=== PATIENT | male | born 1965 | race Caucasian/White ===

== ENCOUNTER 2016-08-30 12:15 | Observation (INO) | payer OTHER ==
[~2016-08-30] VITALS: Ht 162.6 cm; Wt 94.0 kg
[2016-08-30 12:21] VITALS: Ht 162.6 cm; Wt 94.0 kg
[2016-08-30] MEDS ORDERED: AMLO-218 PO (15:29)
[2016-08-30] MEDS ORDERED: FOLI1CAP PO (15:30)
[2016-08-30] MEDS ORDERED: CLON-379 PO (15:30)
[2016-08-30] MEDS ORDERED: CALC667C PO (15:31)
[2016-08-30] MEDS ORDERED: ASPI-664 PO (15:31)
[2016-08-30] MEDS ORDERED: NOVO3I SC (15:32)
[2016-08-30 15:58] VITALS: TEMP 98.1
[2016-08-30 16:09] LABS: ADD SCAN DIFF NO
[2016-08-30 16:10] LABS: BASOPHILS % 0.4 % (0.0-2.0); EOSINOPHILS # 0.2 10^3/ul (0.0-0.5); EOSINOPHILS % 4.6 % (0.0-7.0); HEMATOCRIT 40.5 % (42.0-52.0); HEMOGLOBIN 12.9 g/dl (14.0-18.0); LYMPHOCYTES # 1.1 10^3/ul (0.8-2.9); LYMPHOCYTES % 23.3 % (15.0-51.0); MEAN CORPUSCULAR HEMOGLOBIN 31.2 pg (29.0-33.0); MEAN CORPUSCULAR HGB CONC 31.9 g/dl (32.0-37.0); MEAN CORPUSCULAR VOLUME 98.1 fl (82.0-101.0); MEAN PLATELET VOLUME 10.5 fl (7.4-10.4); MONOCYTE # 0.3 10^3/ul (0.3-0.9); MONOCYTES % 5.9 % (0.0-11.0); NEUTROPHIL # 3.1 10^3/ul (1.6-7.5); NEUTROPHILS % 65.6 % (39.0-77.0); PLATELET COUNT 158 10^3/UL (140-415); RED BLOOD COUNT 4.13 10^6/ul (4.70-6.10); RED CELL DISTRIBUTION WIDTH 17.2 % (11.5-14.5); WHITE BLOOD COUNT 4.8 10^3/ul (4.8-10.8)
[2016-08-30 16:20] LABS: INR 0.85; PROTIME 11.6 Sec (12.2-14.2); PT RATIO 0.9
[2016-08-30 16:21] LABS: PARTIAL THROMBOPLASTIN TIME 26.9 Sec (25.0-35.0)
[2016-08-30 16:22] LABS: CREATININE 8.03 mg/dl (0.61-1.24)
[2016-08-30 16:26] LABS: POTASSIUM 7.5 mmol/L (3.5-5.1)
[2016-08-30] MEDS ORDERED: CA GLUCONATE (GM) 10% 10ML INJ IV STA ×2 (16:26→18:22)
[2016-08-30] MEDS ORDERED: NA BICARBONATE 8.4% 50 ML SYG IV STA ×2 (16:26→18:22)
[2016-08-30] MEDS ORDERED: INSULIN REGULAR, HUMAN 100 UNIT/1 ML 3ML VIAL IV STA ×2 (16:26→18:22)
[2016-08-30] MEDS ORDERED: DEXTROSE 50% 50 ML SYRINGE IV STA ×2 (16:26→18:22)
[2016-08-30] MEDS: NA POLYST SULFON 15 GM/60 ML BTL PO STA ×2 (17:22→17:31)
[2016-08-30 18:29] VITALS: RESP 13
[2016-08-30] MEDS ORDERED: ONDANSETRON 4 MG INJ IV PRN (18:30)
[2016-08-30] MEDS ORDERED: ACETAMINOPHEN 325 MG TAB PO PRN (18:30)
--- NOTE | 2016-08-30 18:30 | ERA ---
ER Documentation Chief Complaint Date/Time DATE: 08/30/16 TIME: 18:26 Chief Complaint needs cath for dialisis , clogged HPI This a 51-year-old male who was sent for clotted dialysis catheter. The patient says on Thursday he had dialysis that was somewhat shorter than usual due to a starting to malfunction right subclavian dialysis catheter. He said on they did less than an hour of dialysis because it was not working well. He went to dialysis today and it did not work at all so they sent him here. He is otherwise completely asymptomatic. He does not know the name of his dialysis doctor but says it is at [address] in [place]. Dialysis Center phone number is [phone]. He says this current catheter in place is 1-month-old ROS All systems reviewed and are negative except as per history of present illness. Medications Home Meds Reported Medications Insulin Aspart* (Novolog Insulin Pen*) 100 Unit/Ml Soln, 0 SC .SLIDING SCALE AC Y for PRN, EA WITH EVENING MEAL 08/30/16 Aspirin (Low Dose Aspirin) 81 Mg Tablet.dr, 81 MG PO DAILY, #30 TAB 08/30/16 Calcium Acetate* (Calcium Acetate*) 667 Mg Capsule, 667 MG PO WITH MEALS, #30 CAP 08/30/16 Folic Acid/Vitamin B Comp W-C (Nephrocaps Capsule) 1 Mg Capsule, 1 MG PO DAILY, CAP 08/30/16 Clonidine Hcl* (Clonidine Hcl*) Unknown Strength Tab, PO PRN Y for ELEVATED BLOOD PRESSURE, TAB 08/30/16 Amlodipine Besylate* (Norvasc*) 10 Mg Tablet, 10 MG PO DAILY, TAB 08/30/16 Allergies Allergies: Coded Allergies: No Known Allergy (Unverified , 08/30/16) PMhx/Soc Medical and Surgical Hx: pt denies Surgical Hx History of Surgery: No Hx Respiratory Disorders: No Hx Cardiac Disorders: Yes (HTN) Hx Miscellaneous Medical Probl: Yes (DM) Hx Alcohol Use: No Hx Substance Use: No Hx Tobacco Use: No Smoking Status: Former smoker FmHx Family History: No coronary disease Physical Exam Vitals Vital Signs Date Time Temp Pulse Resp B/P Pulse Ox O2 Delivery O2 Flow Rate FiO2 08/30/16 18:29 65 13 176/77 97 Room Air 08/30/16 15:58 98.1 61 16 173/84 100 Room Air 08/30/16 15:22 97.6 61 16 178/87 100 Room Air 08/30/16 12:21 98.1 67 20 161/72 99 Physical Exam Const: Well-developed, well-nourished Head: Atraumatic, normocephalic Eyes: Normal Conjunctiva, PERRLA, EOMI, normal sclera, no nystagmus ENT: Normal External Ears, Nose and Mouth, moist mucus membranes. Neck: Full range of motion. No meningismus, no lymphadenopathy. Resp: Clear to auscultation bilaterally, no wheezing, rhonchi, rales Cardio: Regular rate and rhythm, no murmurs, S1 S2 present Abd: Soft, non tender x 4, non distended. Normal bowel sounds, no guarding or rebound, no pulsitile abdominal masses or bruits Skin: No petechiae or rashes, no ecchymosis , no maculopapular rash Back: No midline or flank tenderness Ext: No cyanosis, or edema, FROM x 4, normal inspection, neurovascularly intact x 4 Neur: Awake and alert, STR 5/5 x 4, sensation intact x 4, no focal findings, cerebellum intact Psych: Normal Mood and Affect Result Diagram: 08/30/16 1600 08/30/16 1600 Results 24 hrs Laboratory Tests Test 08/30/16 16:00 Activated Partial Thromboplast Time 26.9Sec Anion Gap 26 Basophils # 0.010^3/ul Basophils % 0.4% Blood Urea Nitrogen 72mg/dl Calcium Level 8.0mg/dl Carbon Dioxide Level 27mmol/L Chloride Level 99mmol/L Creatinine 8.03mg/dl Eosinophils # 0.210^3/ul Eosinophils % 4.6% Glucose Level 201mg/dl Hematocrit 40.5% Hemoglobin 12.9g/dl INR International Normalized Ratio 0.85 Lymphocytes # 1.110^3/ul Lymphocytes % 23.3% Mean Corpuscular Hemoglobin 31.2pg Mean Corpuscular Hemoglobin Concent 31.9g/dl Mean Corpuscular Volume 98.1fl Mean Platelet Volume 10.5fl Monocytes # 0.310^3/ul Monocytes % 5.9% Neutrophils # 3.110^3/ul Neutrophils % 65.6% Nucleated Red Blood Cells # 0.010^3/ul Nucleated Red Blood Cells % 0.0/100WBC Platelet Count 12032^3/UL Potassium Level 7.5mmol/L Prothrombin Time 11.6Sec Prothrombin Time Ratio 0.9 Red Blood Count 4.1310^6/ul Red Cell Distribution Width 17.2% Sodium Level 144mmol/L White Blood Count 4.810^3/ul Current Medications Medications (Trade) Dose Ordered Sig/Lori Route PRN Reason Start Time Stop Time Status Last Admin Dose Admin Insulin Human Regular (Humulin R) 5 unit ONCE STAT IV 08/30/16 16:26 08/30/16 16:49 DC 08/30/16 17:20 Dextrose (D50w Syringe) 50 ml ONCE STAT IV 08/30/16 16:26 08/30/16 16:49 DC 08/30/16 17:19 Sodium Polystyrene Sulfonate (Kayexalate) 30 gm ONCE STAT PO 08/30/16 16:26 08/30/16 16:49 DC 08/30/16 17:31 Sodium Bicarbonate (Na Bicarb 8.4% Syg) 50 ml ONCE STAT IV 08/30/16 16:26 08/30/16 16:49 DC 08/30/16 17:19 Calcium Gluconate (Ca Gluc) 1 gm ONCE STAT IV 08/30/16 16:26 08/30/16 16:49 DC 08/30/16 17:19 Insulin Human Regular (Humulin R) 5 unit ONCE STAT IV 08/30/16 18:22 08/30/16 18:23 DC 08/30/16 19:08 Dextrose (D50w Syringe) 50 ml ONCE STAT IV 08/30/16 18:22 08/30/16 18:23 DC 08/30/16 19:08 Sodium Bicarbonate (Na Bicarb 8.4% Syg) 50 ml ONCE STAT IV 08/30/16 18:22 08/30/16 18:23 DC 08/30/16 19:07 Calcium Gluconate (Ca Gluc) 1 gm ONCE STAT IV 08/30/16 18:22 08/30/16 18:23 DC 08/30/16 19:08 Ondansetron HCl (Zofran Inj) 4 mg ER BRIDGE PRN IV NAUSEA AND/OR VOMITING 08/30/16 18:30 08/31/16 18:29 Acetaminophen (Tylenol Tab) 650 mg ER BRIDGE PRN PO MILD PAIN/FEVER 08/30/16 18:30 08/31/16 18:29 Nifedipine (Procardia Xl) 60 mg ONCE ONCE PO 08/30/16 19:30 08/30/16 19:35 DC 08/30/16 20:02 Nifedipine (Procardia Xl) 60 mg DAILY PO 08/31/16 09:00 Hydralazine HCl (Apresoline) 10 mg Q4H PRN IV SBP>150 mm Hg 08/30/16 20:00 Aspirin (Halfprin) 81 mg DAILY PO 08/31/16 09:00 Calcium Acetate (Phoslo) 667 mg WITH MEALS PO 08/31/16 08:00 Alteplase, Recombinant (Cathflo (Activase)) 2 mg ONCE ONCE CATHETER 08/30/16 20:00 08/30/16 20:01 UNV Alteplase, Recombinant (Cathflo (Activase)) 2 mg ONCE PRN CATHETER 2 PORTS 08/30/16 20:30 08/30/16 23:59 Procedures/MDM Patient's potassium was found to be 7.5 he was given a hyperkalemic "cocktail" 2. Spoke with Dr. Kwaku herrera who is not available to place a catheter. Spoke with interventional radiologist who spoke with our school attendance secretary he said he is not coming in because this is "nonemergent". The school attendance secretary said that she notified him that the potassium is 7.5. His reply was that he does not want to come into place catheter because there may be an emergent case somewhere else that he would need to get to him that the patient just needs a Duncan placed Spoke with Dr. Bard roche admitting physician who said he will call Dr. Clay to try to get a Duncna placed Critical Care Time: 30 minutes Treatments/Evaluations: Close monitoring and treatment of unstable vital signs, cardiorespiratory, and neurologic status, while maintaining tight balance of fluid, respiratory, and cardiac interventions. This time includes discussing the case with the patient and the patient's family. This time does not include all procedures stated elsewhere in this record. This time also includes reviewing old records, labs and radiological studies. This time includes examining and re-examining the patient. Additionally, this time also includes arranging care with admitting and consulting physicians. EKG: Rate/Rhythm: Normal sinus rhythm heart rate 69 QRS, ST, QT: NORMAL MN, QRS, QT] Impression: NORMAL EKG Departure Diagnosis: Primary Impression: Hyperkalemia Additional Impression: Hemodialysis catheter malfunction Qualified Code: T82.41XA - Hemodialysis catheter malfunction, initial encounter Condition: CHASITY Rebolledo DO Aug 30, 2016 18:30
[2016-08-30] MEDS ORDERED: NIFEdipine (XL) 60 MG TAB PO ONE (19:30)
[2016-08-30] MEDS ORDERED: hydrALAzine 20 MG INJ IV PRN (20:00)
[2016-08-30] MEDS ORDERED: ALTEPLASE (CATHFLO) 2 MG INJ CATHETER ONE (20:00)
[2016-08-30] MEDS ORDERED: ALTEPLASE (CATHFLO) 2 MG INJ CATHETER PRN (20:30)
[2016-08-30 20:36] VITALS: PULSE 72
[2016-08-30 22:30] VITALS: BP 120/78; PULSE 73
[2016-08-30 23:00] VITALS: BP 119/73; PULSE 74
[2016-08-30 23:30] VITALS: BP 128/68; PULSE 70
[2016-08-31] VITALS (7 sets, daily range): BP systolic 118–153; BP diastolic 66–74; PULSE 66–85
--- NOTE | 2016-08-31 03:37 | CONS ---
DATE OF ADMISSION: 08/30/2016 DATE OF CONSULTATION: 08/30/2016 REFERRING PHYSICIAN: Clark Peck MD TYPE OF CONSULTATION: Nephrology. REASON FOR CONSULTATION: Acute hyperkalemia and end-stage renal disease on hemodialysis who present ed with a clotted hemodialysis catheter. HISTORY OF PRESENT ILLNESS: This is a 51-year-old male with a past medical history of hypertension, diabetes mellitus, history of end-stage renal disease on hemodialysis Thursday, , and ay. The patient has a right subclavian dialysis catheter. The patient said that in the last few we eks the patient has not been having adequate dialysis due to the malfunction of dialysis catheter. The patient had approximately 1 hour of dialysis on . He went to dialysis today. His amarilis ter did not work. He was sent to the [facility] Emergency Room. The patient goes to the dialysis center on [address] in [place]. His current catheter has been placed approxima tely 1 month before. He denies any symptoms of chest pain, palpitation, headache, dizziness, blurry vision, constipation, diarrhea, dysuria, or increase in urinary frequency. REVIEW OF SYSTEMS: Malfunction of the dialysis catheter and weakness with fatigue. Otherwise, 12 p oint review of systems has been obtained and is negative except what is mentioned in the history of present illness. HOME MEDICATIONS: Include 1. Insulin. 2. Aspirin. 3. Calcium acetate. 4. Clonidine. 5. Amlodipine. 6. Thao-Ozzie. PAST MEDICAL HISTORY: Notable for hypertension, diabetes mellitus, end-stage renal disease on hemod ialysis Thursday, , and Thursday. PAST SURGICAL HISTORY: History of dialysis catheter, Perm-A-Cath. SOCIAL HISTORY: No smoking, alcohol, or recreational drug use. FAMILY HISTORY: No history of coronary artery disease or stroke. As per the patient, no history of any kidney disease in the family. PHYSICAL EXAMINATION: VITAL SIGNS: Temperature 98.1, heart rate 65, respirations 13, blood pressure 178/87, saturation 97 % to 100% on room air. GENERAL: He is awake, alert, in no distress. HEENT: Normal. Oropharynx clear. NECK: Supple, no JVD, no lymphadenopathy. LUNGS: Clear to auscultation. No crackles, no wheezes. HEART: S1, S2, with regular rhythm, no murmur. ABDOMEN: Soft, nontender, nondistended. Bowel sounds are present. EXTREMITIES: No clubbing, cyanosis, or edema. The patient has a right subclavian tunneled hemodial ysis catheter. NEUROLOGICAL: Nonfocal, intact. PSYCHIATRIC: Appropriate affect and mood. LABORATORY DATA/DIAGNOSTIC IMAGING: WBC 4.8, hemoglobin 12.9, platelet count 158. Sodium 144, pota ssium 7.5, chloride 99, bicarbonate 27, BUN 72, creatinine 8.03, glucose 201, calcium is 8. Prothro mbin time 11.6, PTT 26.9, INR 0.85. IMPRESSION: This is a 51-year-old male with 1. Acute hyperkalemia with potassium of 7.5 secondary to missed hemodialysis and inadequate dialysi s on the last 2 sessions due to the malfunctioning of dialysis catheter. 2. End-stage renal disease on hemodialysis. Missed hemodialysis due to the malfunctioning of dialy sis catheter. 3. Clotted tunneled hemodialysis catheter, right upper chest. 4. End-stage renal disease on hemodialysis Thursday, , Thursday. 5. History of hypertension. 6. History of diabetes mellitus. PLAN: Thank you, Dr. Peck, for this consultation. The patient is currently seen in the emergen cy room. He is getting admitted to the telemetry floor. The patient refused to get Kayexalate for hyperkalemia. He has been explained about the risks and complications including the cardiac arrhyth kevin, but he persistently refused, and he did not take the Kayexalate. He already received the sodiu m bicarbonate and calcium gluconate for his hyperkalemia in the emergency room. I will ask my dialy sis nurse to check his tunneled hemodialysis catheter and place the TPA into the dialysis catheter. If the dialysis catheter works, we will try to do a short session of hemodialysis overnight. If the dialysis catheter does not work, then we will consult the Vascular Surgery, Dr. Andino, to replace tunneled hemodialysis catheter. The patient is currently seen in the emergency room. I will give him Procardia, XL 60 mg p.o. x1 an d then daily for his accelerated hypertension. Home medication reconciliation done. His home medication, amlodipine, has been stopped due to the i nitiation of Procardia-XL. Other orders will be done by primary care physician, Dr. Peck. The patient is currently seen in the emergency room, and he will be getting admitted to the telemetr y floor for acute hyperkalemia and clotted hemodialysis catheter. Dictated By: RAVEN BARGER MD, KP/KYLE Conf#: [id number] DID#: [id number]
[2016-08-31] MEDS ORDERED: CALCIUM ACETATE 667 MG CAP PO SCH (08:00)
[2016-08-31] MEDS ORDERED: ASPIRIN (EC) 81 MG TAB PO SCH (09:00)
[2016-08-31] MEDS ORDERED: NIFEdipine (XL) 60 MG TAB PO SCH (09:00)
--- NOTE | 2016-08-31 09:31 | CONS ---
Date/Time of Note Date/Time of Note DATE: 08/31/16 TIME: 09:29 Assessment/Plan Assessment/Plan Additional Assessment/Plan 1. Acute hyperkalemia with potassium of 7.5 secondary to missed hemodialysis and inadequate dialysis on the last 2 sessions due to the malfunctioning of dialysis catheter. 2. End-stage renal disease on hemodialysis. Missed hemodialysis due to the malfunctioning of dialysis catheter. 3. Clotted tunneled hemodialysis catheter, right upper chest. 4. End-stage renal disease on hemodialysis Thursday, , Thursday. 5. History of hypertension. 6. History of diabetes mellitus. PLAN: tPA was placed in catheter, catheter worked and pt had a HD 1 L removed BP stable pt wants to leave Against medical advise, Nurse advised to call PMD pt will need another session of HD today, no labs today, then he will be on Thu, , thursday schedule Consultation Date/Type/Reason Admit Date/Time Aug 30, 2016 at 18:25 Initial Consult Date Aug Type of Consultation: NEPHROLOGY Reason for Consultation acute hypoerkalemia K 7.5, missed hemodilayiss due to clotted HD catheter, ESRD on HD Referring Provider: AMELIA HUMPHREY MD 24 HR Interval Summary Free Text/Dictation pt had a tPA placed in catheter and had a HD yesterday 1 L removed, Bp stable he was seen early in AM, he wants to leave against medical advise Exam/Review of Systems Vital Signs Vitals Vital Signs Date Time Temp Pulse Resp B/P Pulse Ox O2 Delivery O2 Flow Rate FiO2 08/31/16 08:24 73 08/31/16 01:30 18 08/30/16 18:29 176/77 97 Room Air 08/30/16 15:58 98.1 Intake and Output 08/30/16 08/30/16 08/31/16 15:00 23:00 07:00 Intake Total 900 ml Output Total 1500 ml Balance -600 ml Exam GENERAL: He is awake, alert, in no distress. HEENT: Normal. Oropharynx clear. NECK: Supple, no JVD, no lymphadenopathy. LUNGS: Clear to auscultation. No crackles, no wheezes. HEART: S1, S2, with regular rhythm, no murmur. ABDOMEN: Soft, nontender, nondistended. Bowel sounds are present. EXTREMITIES: No clubbing, cyanosis, or edema. The patient has a right subclavian tunneled hemodialysis catheter. NEUROLOGICAL: Nonfocal, intact. PSYCHIATRIC: Appropriate affect and mood Results Result Diagram: 08/30/16 1600 08/30/16 1600 Results 24 hrs Laboratory Tests Test 08/30/16 16:00 Activated Partial Thromboplast Time 26.9 Anion Gap 26 H Basophils # 0.0 Basophils % 0.4 Blood Urea Nitrogen 72 H Calcium Level 8.0 L Carbon Dioxide Level 27 Chloride Level 99 Creatinine 8.03 H Eosinophils # 0.2 Eosinophils % 4.6 Glucose Level 201 Hematocrit 40.5 L Hemoglobin 12.9 L INR International Normalized Ratio 0.85 Lymphocytes # 1.1 Lymphocytes % 23.3 Mean Corpuscular Hemoglobin 31.2 Mean Corpuscular Hemoglobin Concent 31.9 L Mean Corpuscular Volume 98.1 Mean Platelet Volume 10.5 H Monocytes # 0.3 Monocytes % 5.9 Neutrophils # 3.1 Neutrophils % 65.6 Nucleated Red Blood Cells # 0.0 Nucleated Red Blood Cells % 0.0 Platelet Count 158 Potassium Level 7.5 *H Prothrombin Time 11.6 L Prothrombin Time Ratio 0.9 Red Blood Count 4.13 L Red Cell Distribution Width 17.2 H Sodium Level 144 White Blood Count 4.8 Medications Medications Current Medications Nifedipine (Procardia Xl) 60 mg DAILY PO ; Start 08/31/16 at 09:00 Hydralazine HCl (Apresoline) 10 mg Q4H PRN IV SBP>150 mm Hg ; Start 08/30/16 at 20:00 Aspirin (Halfprin) 81 mg DAILY PO ; Start 08/31/16 at 09:00 RAVEN BARGER MD Aug 31, 2016 09:31
--- NOTE | 2016-08-31 14:06 | HP ---
DATE OF ADMISSION: 08/30/2016 CHIEF COMPLAINT AND HISTORY OF PRESENT ILLNESS: History is obtained from medical record and discuss ion with ER physician. The patient is a 51-year-old gentleman with history of hypertension, end-sta ge renal disease, diabetes, who was sent from dialysis center due to malfunctioning dialysis cathete r. The patient has a right subclavian dialysis catheter. The patient was seen in the ER, was noted to have a potassium of 7.5. The patient was offered Kayexalate by ER physician; however, patient r efused. Patient did receive sodium bicarbonate, D50, and IV insulin along with calcium gluconate. I spoke with Dr. Hero Clay from nephrology standpoint. REVIEW OF SYSTEMS: Rest of the review of systems was negative. ALLERGIES: NONE. SOCIAL HISTORY: Ex-smoker. FAMILY HISTORY: No coronary artery disease. PHYSICAL EXAMINATION: GENERAL: The patient is awake, alert. VITAL SIGNS: Blood pressure 176/77, pulse 65, respirations 13, temperature 98.1, O2 saturation 97% on room air. HEENT: Atraumatic, normocephalic head. No eye discharge. Extraocular movement intact. NECK: Supple, no lymphadenopathy. LUNGS: Clear. CARDIOVASCULAR: Regular rate and rhythm. No murmur. ABDOMEN: Soft, nontender, nondistended. EXTREMITIES: No edema. NEUROLOGIC: The patient is awake, alert, with no gross focal deficit. LABORATORY DATA: Done in the ER, WBC 4.8, hemoglobin 12.9, platelets 158. Sodium 144, potassium 7. 8, BUN 22, creatinine 8, glucose 201. IMPRESSION: 1. Malfunctioning right subclavian dialysis catheter. 2. Hypertension. 3. Hyperkalemia. 4. Diabetes mellitus. PLAN: The patient was supposed to have TPA via dialysis catheter and was supposed to have dialysis subsequently. Patient in the ER was given a dose of Procardia for hypertension, and IV insulin, and was put on IV hydralazine on p.r.n. basis. The patient was also started on aspirin and PhosLo. Di alysis nurse was called, and patient was able to undergo hemodialysis successfully. Further recomme ndations will depend on the patient's hospital course. was also called from ER in case TP A fails to de-clot dialysis catheter. Dictated By: AMELIA HUMPHREY MD AB/NTS Conf#: [id number] DID#: [id number]
--- NOTE | 2016-08-31 14:08 | DS ---
DATE OF ADMISSION: 08/30/2016 DATE OF DISCHARGE: 08/31/2016 Patient left against medical advice. DISCHARGE DIAGNOSES: 1. Hyperkalemia due to malfunctioning dialysis catheter, status post treatment of hyperkalemia in E R with D50, sodium bicarbonate, and calcium gluconate. The patient had diffuse . 2. Malfunctioning dialysis catheter, status post TPA use and subsequently successful hemodialysis. 3. Hypertension. 4. Diabetes mellitus. HOSPITAL COURSE: The patient was admitted with diagnosis of acute hyperkalemia. Due to malfunction ing catheter, patient had a TPA placement catheter and had hemodialysis done yesterday, and about a liter of fluid was removed. Patient was seen by Dr. Hero Clay this morning and recommended another h emodialysis. However, patient left against medical advice. PHYSICAL EXAMINATION: VITAL SIGNS: Last blood pressure was 176/76, last recorded temperature 98.1, pulse 64, respirations . The patient's vital signs were stable and was saturating 97% on room air. Dictated By: AMELIA BOX/KYLE Conf#: [id number] DID#: [id number]
== END 2016-08-31 10:46 | disposition left against medical advice (07) ==
LOC: E/R 12:15 → MS4 18:25 → UNDOADMOB 19:08 → MS4 19:08
PROVIDERS: ADMIT Internal Medicine Nephrology; ATTEND Internal Medicine Nephrology
DX: E87.5 Hyperkalemia (principal); T82.41XA Breakdown (mechanical) of vascular dialysis catheter, initial encounter; Y84.1 Kidney dialysis as the cause of abnormal reaction of the patient, or of later complication, without mention of misadventure at the time of the procedure; Y92.89 Other specified places as the place of occurrence of the external cause; I12.0 Hypertensive chronic kidney disease with stage 5 chronic kidney disease or end stage renal disease; N18.6 End stage renal disease; Z99.2 Dependence on renal dialysis; E11.9 Type 2 diabetes mellitus without complications; Z79.4 Long term (current) use of insulin
CPT/HCPCS: 36415; 80048; 85025; 85610; 85730; 90935; 93005; 96374; 96375; 96376; J0610; J1815; Z7500; Z7502; Z7610; G0378